=== PATIENT | female | born 1980 | race Caucasian/White ===

== ENCOUNTER 2020-10-20 10:43 | Inpatient (IN) | payer MEDICAID ==
[~2020-10-20] VITALS: Ht 167.6 cm; Wt 70.5 kg
[2020-10-20] MEDS ORDERED: SODIUM CHLORIDE FLUSH 10ML SYR IVF ONE (11:00)
[2020-10-20] MEDS ORDERED: KETOROLAC 30 MG/1 ML IVPush ONE (11:00)
[2020-10-20] MEDS ORDERED: KETOROLAC 30 MG/1 ML ONE (11:01)
[2020-10-20] MEDS ORDERED: HYDROmorphone 1 MG/ML, 1ML INJ ONE ×4 (11:01→16:18)
[2020-10-20] MEDS: HYDROmorphone 1 MG/ML, 1ML INJ IVPush PRN ×6 (11:04→16:25)
--- NOTE | 2020-10-20 11:18 | NUR ---
40yo F with hx of multiple kidney stones BIB [facility] for radiating L LBP to L groin and painful urination after attempting to relieve pain by taking a bath. In route, PIV inserted and medicated with 150mcg Fentanyl and 4mg zofran. On arrival pt leaning over side rail of [facility] in pain, medicated per OCT. MD Padilla at bedside for eval.
--- NOTE | 2020-10-20 11:23 | NUR ---
Pt states "I had to have a procedure once for kiney stone removal when I was 17. I don't know what they did but I know I was knocked out for it."
[2020-10-20] MEDS ORDERED: PLEASE ENTER ALLERGIES MC SCH (11:30)
[2020-10-20 12:00] LABS: CHLORIDE 110 mmol/L (98-107)
[2020-10-20 12:09] LABS: MICROSCOPIC INDICATED
[2020-10-20 12:13] LABS: ALANINE AMINOTRANSFERASE 17 U/L (12-78); ALKALINE PHOSPHATASE 74 U/L (45-117); ANION GAP 9 mmol/L (5-15); BILIRUBIN,TOTAL 0.6 mg/dL (0.2-1.0); CALCIUM 8.6 mg/dL (8.5-10.1); CREATININE 1.13 mg/dL (0.55-1.02)
--- NOTE | 2020-10-20 12:29 | NUR ---
Pt to imaging.
[2020-10-20 12:42] LABS: BASOPHILS % (AUTO) 0 % (0-1); EOSINOPHILS % (AUTO) 0 % (1-7); LYMPHOCYTES % (AUTO) 12 % (22-44); MEAN CORPUSCULAR HGB CONC 34.6 g/dL (32.4-35.8); MONOCYTES % (AUTO) 1 % (2-9); NEUTROPHILS % (AUTO) 87 % (42-75); PLATELET COUNT 209 x10^3/uL (130-400); RED BLOOD COUNT 4.65 x10^6/uL (3.82-5.3); RED CELL DISTRIBUTION WIDTH 13.5 % (9.6-15.2)
[2020-10-20 12:50] LABS: MD NO
[2020-10-20] MEDS ORDERED: CEFTRIAXONE PMX 1GM/50ML 50 ML IVPB ONE (13:00)
--- NOTE | 2020-10-20 13:34 | NUR ---
NPO since midnight. Last administered opiate at 1208, see MAR. Pt undressed completely for sx.
[2020-10-20] MEDS ORDERED: SODIUM CHLORIDE 0.9% 1,000 ML IV ONE (14:00)
[2020-10-20] MEDS ORDERED: SODIUM CHLORIDE FLUSH 10ML SYR IVF PRN (14:00)
[2020-10-20] MEDS ORDERED: CHLORHEXIDINE 15 ML UDC ONE (14:02)
[2020-10-20] MEDS ORDERED: FENTANYL PF 250 MCG/5ML ONE (14:04)
[2020-10-20] MEDS ORDERED: MIDAZOLAM 1 MG/ML, 2ML ONE (14:04)
--- NOTE | 2020-10-20 14:09 | NUR ---
REPORT TO CANDI COVER CREASER.
--- NOTE | 2020-10-20 14:16 | NUR ---
DR SHELTON AT BEDSIDE DISCUSSING PROCEDURE WITH PT
--- NOTE | 2020-10-20 14:20 | NUR ---
Bobby bal in [facility] - 10/20/20 at 1420 by WALTER RENAL MD AT BEDSIDE.
--- NOTE | 2020-10-20 14:28 | NUR ---
Pt removed all jewlery, including 2 bracelets and 2 necklaces and 1 ring, placed in biohazard baggie, placed in pt belonging with clothes.
[2020-10-20] MEDS ORDERED: CHLORHEXIDINE 15 ML UDC MM ONE (14:30)
[2020-10-20] MEDS ORDERED: HALOPERIDOL 5 MG/ML IV PRN (15:00)
[2020-10-20] MEDS ORDERED: LABETALOL 5MG/ML, 20ML IV PRN (15:00)
[2020-10-20] MEDS ORDERED: morphine SULFATE 10 MG/ML, 1ML IVPush PRN (15:00)
[2020-10-20] MEDS ORDERED: ACETAMINOPHEN 325 MG TABLET PO PRN (15:00)
[2020-10-20] MEDS ORDERED: PROMETHAZINE 25 MG/ML, 1ML IVPush PRN (15:00)
[2020-10-20] MEDS ORDERED: OXYcodone 5 MG/5 ML ORAL.SOL UDC PO PRN (15:00)
[2020-10-20] MEDS ORDERED: hydrALAzine 20 MG/ML, 1ML IV PRN (15:00)
[2020-10-20] MEDS ORDERED: OMNIPAQUE 350 MG/ML, 50 ML BOTTLE ONE (15:09)
[2020-10-20] MEDS ORDERED: DEXAMETHASONE 4 MG/ML, 1ML ONE (15:17)
[2020-10-20] MEDS ORDERED: GLYCOPYRROLATE 0.2MG/1ML, 5ML ONE (15:17)
[2020-10-20] MEDS ORDERED: ONDANSETRON 2MG/ML, 2ML ONE (15:17)
[2020-10-20] MEDS ORDERED: ROCURONIUM 10MG/ML,5ML ONE (15:17)
[2020-10-20] MEDS ORDERED: NEOSTIGMINE 1 MG/ML, 10ML ONE (15:17)
[2020-10-20] MEDS ORDERED: PROPOFOL 10 MG/ML, 20ML ONE (15:17)
[2020-10-20] MEDS ORDERED: CEFAZOLIN 1,000 MG ONE (15:17)
[2020-10-20] MEDS ORDERED: SUGAMMADEX 200 MG/2 ML IVPush ONE (15:29)
[2020-10-20] MEDS ORDERED: FENTANYL PF 100 MCG/2ML ONE (15:38)
[2020-10-20] MEDS ORDERED: OXYcodone 5 MG/5 ML ORAL.SOL UDC ONE (15:38)
[2020-10-20] MEDS: FENTANYL PF 100 MCG/2ML IV PRN ×2 (15:43→15:52)
[2020-10-20] MEDS ORDERED: OPIUM/BELLADONNA SUPP.RECT 16.2-30 MG ONE (16:09)
[2020-10-20] MEDS ORDERED: OPIUM/BELLADONNA SUPP.RECT 16.2-30 MG PR PRN (16:30)
[2020-10-20] MEDS ORDERED: MEPERIDINE/PF 25MG/ML,1ML ONE (16:37)
[2020-10-20] MEDS: MEPERIDINE/PF 25MG/0.5ML IVPush PRN ×2 (16:38→16:50)
[2020-10-20 16:49] LABS: HCG UR SG 1.036 (1.003-1.030)
[2020-10-20] MEDS ORDERED: OXYBUTYNIN CHLORIDE 5 MG TABLET PO PRN (18:00)
[2020-10-20] MEDS ORDERED: GABA600T7 PO (18:10)
[2020-10-20 19:22] VITALS: BP 137/83
[2020-10-20] MEDS ORDERED: GABAPENTIN 300 MG CAPSULE PO PRN (20:00)
[2020-10-20] MEDS ORDERED: MELATONIN 5 MG TABLET PO PRN (20:00)
[2020-10-20] MEDS ORDERED: ONDANSETRON 2MG/ML, 2ML IVPush PRN (20:00)
[2020-10-20] MEDS: morphine SULFATE 10 MG/ML, 1ML IVPush PRN (20:40)
[2020-10-20] MEDS: ENOXAPARIN 40 MG/0.4 ML SQ SCH (20:48)
[2020-10-20] MEDS ORDERED: OXYcodone IR 5MG TABLET PO PRN (22:30)
[2020-10-21 00:13] VITALS: BP 112/75
[2020-10-21] MEDS: ACETAMINOPHEN 325 MG TABLET PO PRN ×3 (03:48→11:15)
[2020-10-21] MEDS: OXYcodone IR 5MG TABLET PO PRN ×6 (03:49→23:27)
[2020-10-21] MEDS ORDERED: CEFTRIAXONE PMX 1GM/50ML 50 ML IV SCH ×2 (04:00→12:00)
[2020-10-21 04:16] VITALS: BP 112/75
[2020-10-21] MEDS: morphine SULFATE 10 MG/ML, 1ML IVPush PRN ×3 (04:26→21:29)
[2020-10-21 05:33] LABS: MEAN CORPUSCULAR HEMOGLOBIN 31.6 pg (27.0-34.8); MEAN PLATELET VOLUME 9.2 fL (7.4-10.4); PLATELET COUNT 248 x10^3/uL (130-400); RED CELL DISTRIBUTION WIDTH 13.2 % (9.6-15.2)
[2020-10-21 05:47] LABS: ANION GAP 8 mmol/L (5-15); CALCIUM 8.8 mg/dL (8.5-10.1); CHLORIDE 106 mmol/L (98-107)
[2020-10-21 05:57] LABS: MD YES
[2020-10-21 05:58] LABS: <PLATELET ESTIMATE> ADEQUATE; <PLT MORPHOLOGY> NORMAL PLT MORPH; <RBC MORPHOLOGY> NORMAL; BAND#(MANUAL) 0.87 x10^3/uL; BANDS%(MANUAL) 3 % (0-7); LYMPH#(MANUAL) 1.46 x10^3/uL (1-3.4); LYMPHS% (MANUAL) 5 % (22-44); MONOS#(MANUAL) 0.58 x10^3/uL (0.3-2.7); MONOS% (MANUAL) 2 % (2-9); SEG#(MANUAL) 26.19 x10^3/uL (1.8-6.8); SEGS% (MANUAL) 90 % (42-75)
[2020-10-21] MEDS: CEFEPIME 2 GM in DEXTROSE 5% 100 ML IV SCH ×3 (07:37→23:54)
[2020-10-21 07:50] VITALS: BP 100/67
[2020-10-21] MEDS: SENNA/DOCUSATE TABLET PO SCH (09:03)
[2020-10-21 13:45] VITALS: BP 95/67
[2020-10-21] MEDS: TAMSULOSIN 0.4 MG CAP.ER.24H PO SCH (15:16)
[2020-10-21 19:33] VITALS: BP 112/80
[2020-10-21] MEDS: ENOXAPARIN 40 MG/0.4 ML SQ SCH (20:00)
[2020-10-22 00:16] VITALS: BP 106/67
[2020-10-22] MEDS: morphine SULFATE 10 MG/ML, 1ML IVPush PRN ×5 (01:33→23:05)
[2020-10-22] MEDS: OXYcodone IR 5MG TABLET PO PRN ×5 (03:37→20:40)
[2020-10-22 03:57] LABS: BASOPHILS % (AUTO) 0 % (0-1); EOSINOPHILS % (AUTO) 0 % (1-7); LYMPHOCYTES % (AUTO) 19 % (22-44); MEAN CORPUSCULAR HEMOGLOBIN 32.6 pg (27.0-34.8); MEAN CORPUSCULAR HGB CONC 34.9 g/dL (32.4-35.8); MONOCYTES % (AUTO) 3 % (2-9); NEUTROPHILS % (AUTO) 77 % (42-75); PLATELET COUNT 157 x10^3/uL (130-400); RED BLOOD COUNT 3.92 x10^6/uL (3.82-5.3); RED CELL DISTRIBUTION WIDTH 13.2 % (9.6-15.2)
[2020-10-22 03:58] LABS: MD NO
[2020-10-22 04:06] LABS: ANION GAP 6 mmol/L (5-15); CHLORIDE 110 mmol/L (98-107)
[2020-10-22 06:49] VITALS: BP 109/73
[2020-10-22] MEDS: SENNA/DOCUSATE TABLET PO SCH (07:43)
[2020-10-22] MEDS: CEFEPIME 2 GM in DEXTROSE 5% 100 ML IV SCH (07:43)
[2020-10-22] MEDS: TAMSULOSIN 0.4 MG CAP.ER.24H PO SCH (07:43)
[2020-10-22 10:50] LABS: HCT (SEDRATE) 37.2 % (34.6-47.8)
[2020-10-22] MEDS: CEFTRIAXONE PMX 2GM/50ML 50 ML IVPB SCH (11:02)
[2020-10-22 13:55] VITALS: BP 114/77
[2020-10-22] MEDS: ENOXAPARIN 40 MG/0.4 ML SQ SCH (19:58)
[2020-10-22 20:34] VITALS: BP 107/66
[2020-10-23] MEDS: OXYcodone IR 5MG TABLET PO PRN ×6 (00:32→21:31)
[2020-10-23] MEDS: morphine SULFATE 10 MG/ML, 1ML IVPush PRN ×6 (02:23→21:35)
[2020-10-23 02:32] VITALS: BP 112/75
[2020-10-23 05:33] LABS: BASOPHILS % (AUTO) 0 % (0-1); EOSINOPHILS % (AUTO) 1 % (1-7); LYMPHOCYTES % (AUTO) 24 % (22-44); MEAN CORPUSCULAR HEMOGLOBIN 32.2 pg (27.0-34.8); MEAN CORPUSCULAR HGB CONC 34.7 g/dL (32.4-35.8); MEAN PLATELET VOLUME 9.6 fL (7.4-10.4); MONOCYTES % (AUTO) 7 % (2-9); NEUTROPHILS % (AUTO) 69 % (42-75); PLATELET COUNT 161 x10^3/uL (130-400)
[2020-10-23 05:36] LABS: MD NO
[2020-10-23 05:48] LABS: ANION GAP 5 mmol/L (5-15); CALCIUM 8.8 mg/dL (8.5-10.1); CHLORIDE 103 mmol/L (98-107)
[2020-10-23 07:26] VITALS: BP 104/70
[2020-10-23] MEDS: TAMSULOSIN 0.4 MG CAP.ER.24H PO SCH (08:25)
[2020-10-23] MEDS: SENNA/DOCUSATE TABLET PO SCH (08:25)
[2020-10-23] MEDS: CEFTRIAXONE PMX 2GM/50ML 50 ML IVPB SCH (10:59)
[2020-10-23 13:28] VITALS: BP 111/69
[2020-10-23] MEDS: ENOXAPARIN 40 MG/0.4 ML SQ SCH (19:45)
[2020-10-23 20:47] VITALS: BP 111/76
[2020-10-24] MEDS: morphine SULFATE 10 MG/ML, 1ML IVPush PRN ×3 (01:05→08:44)
[2020-10-24 01:22] VITALS: BP 114/78
[2020-10-24] MEDS: OXYcodone IR 5MG TABLET PO PRN ×3 (01:28→12:35)
[2020-10-24 06:04] LABS: BASOPHILS % (AUTO) 0 % (0-1); EOSINOPHILS % (AUTO) 2 % (1-7); LYMPHOCYTES % (AUTO) 37 % (22-44); MEAN CORPUSCULAR HEMOGLOBIN 32.3 pg (27.0-34.8); MEAN CORPUSCULAR HGB CONC 35.3 g/dL (32.4-35.8); MEAN PLATELET VOLUME 9.1 fL (7.4-10.4); MONOCYTES % (AUTO) 7 % (2-9); NEUTROPHILS % (AUTO) 54 % (42-75); PLATELET COUNT 183 x10^3/uL (130-400); RED BLOOD COUNT 4.24 x10^6/uL (3.82-5.3)
[2020-10-24 06:07] LABS: MD NO
[2020-10-24 06:14] LABS: ALANINE AMINOTRANSFERASE 23 U/L (12-78); ALBUMIN 3.1 g/dL (3.4-5.0); ANION GAP 4 mmol/L (5-15); CALCIUM 8.9 mg/dL (8.5-10.1); CHLORIDE 105 mmol/L (98-107); CREATININE 0.61 mg/dL (0.55-1.02)
[2020-10-24 06:17] LABS: ALKALINE PHOSPHATASE 62 U/L (45-117); BILIRUBIN,TOTAL 0.4 mg/dL (0.2-1.0); TOTAL PROTEIN 6.8 g/dL (6.4-8.2)
[2020-10-24 07:15] VITALS: BP 111/77
[2020-10-24] MEDS: SENNA/DOCUSATE TABLET PO SCH (08:37)
[2020-10-24] MEDS: TAMSULOSIN 0.4 MG CAP.ER.24H PO SCH (08:37)
[2020-10-24] MEDS: CEFTRIAXONE PMX 2GM/50ML 50 ML IVPB SCH (11:08)
[2020-10-24] MEDS ORDERED: TAMS-11 PO (11:25)
[2020-10-24 12:28] VITALS: BP 118/80
[2020-10-24] MEDS ORDERED: OXYC1TAB14 PO (12:55)
[2020-10-24 14:41] VITALS: BP 124/68
== END 2020-10-24 15:37 | disposition home or self-care (01) | DRG 854 ==
LOC: SUATTDRO 13:26 → ED 13:33 → EDIP 13:59 → INTOOBSV 13:59 → 4NE 17:21 → OBSVTOIN 10-21 11:19 → DCLOUNGE 10-24 15:27
PROVIDERS: ADMIT Internal Medicine; ATTEND Hospitalist
PROC: BT1F1ZZ Fluoroscopy of Left Kidney, Ureter and Bladder using Low Osmolar Contrast (ICD-10-PCS; 2020-10-20)
PROC: 0T778DZ Dilation of Left Ureter with Intraluminal Device, Via Natural or Artificial Opening Endoscopic (ICD-10-PCS; principal; 2020-10-20 14:30)
PROC: 02HV33Z Insertion of Infusion Device into Superior Vena Cava, Percutaneous Approach (ICD-10-PCS; 2020-10-24)
PROC: B5181ZA Fluoroscopy of Superior Vena Cava using Low Osmolar Contrast, Guidance (ICD-10-PCS; 2020-10-24)
PROC: B548ZZA Ultrasonography of Superior Vena Cava, Guidance (ICD-10-PCS; 2020-10-24)
DX: A41.51 Sepsis due to Escherichia coli [E. coli] (principal); N13.6 Pyonephrosis; N17.9 Acute kidney failure, unspecified; M54.5 Low back pain; Z20.822 Contact with and (suspected) exposure to COVID-19; Z86.718 Personal history of other venous thrombosis and embolism; Z80.3 Family history of malignant neoplasm of breast; Z87.442 Personal history of urinary calculi
CPT/HCPCS: 36415; 36573; 74176; 74420; 80048; 80053; 81001; 81025; 83605; 83735; 84702; 85025; 85651; 86140; 87040; 87077; 87086; 87186; 87635; 96365; 96375; 96376; 99291; G0378; J0690; J0696; J1100; J1170; J1650; J1885; J2175; J2250; J2405; J2704; J2710; J3010; Q9967; C1751; C1769; C2617; J2270

== ENCOUNTER 2020-10-28 14:58 | Emergency (ER) | payer MEDICAID ==
[~2020-10-28] VITALS: Ht 157.5 cm; Wt 67.0 kg
[~2020-10-28 14:58] MED LIST: GABA600T7 PO; OXYC1TAB14 PO; TAMS-11 PO
[2020-10-28] MEDS ORDERED: ONDANSETRON 2MG/ML, 2ML IVPush ONE (15:30)
[2020-10-28] MEDS ORDERED: MORPHINE SULFATE 4 MG/ML, 1ML IVPush PRN (15:30)
[2020-10-28] MEDS ORDERED: MORPHINE SULFATE 4 MG/ML, 1ML ONE (15:41)
[2020-10-28] MEDS ORDERED: ONDANSETRON 2MG/ML, 2ML ONE (15:41)
[2020-10-28] MEDS ORDERED: HYDROmorphone 1 MG/ML, 1ML INJ ONE (15:48)
[2020-10-28 15:59] LABS: MICROSCOPIC INDICATED
[2020-10-28] MEDS ORDERED: HYDROmorphone 1 MG/ML, 1ML INJ IV ONE (16:00)
[2020-10-28 16:01] LABS: ALBUMIN 3.7 g/dL (3.4-5.0); ANION GAP 5 mmol/L (5-15); CALCIUM 8.6 mg/dL (8.5-10.1); CHLORIDE 108 mmol/L (98-107); CREATININE 0.78 mg/dL (0.55-1.02)
[2020-10-28 16:10] LABS: BASOPHILS % (AUTO) 1 % (0-1); EOSINOPHILS % (AUTO) 3 % (1-7); LYMPHOCYTES % (AUTO) 32 % (22-44); MEAN CORPUSCULAR HGB CONC 34.7 g/dL (32.4-35.8); MEAN PLATELET VOLUME 8.3 fL (7.4-10.4); MONOCYTES % (AUTO) 6 % (2-9); NEUTROPHILS % (AUTO) 59 % (42-75); PLATELET COUNT 304 x10^3/uL (130-400); RED BLOOD COUNT 4.28 x10^6/uL (3.82-5.3); RED CELL DISTRIBUTION WIDTH 12.9 % (9.6-15.2)
[2020-10-28 16:15] LABS: MD NO
[2020-10-28] MEDS ORDERED: CEFTRIAXONE PMX 1GM/50ML 50 ML IV ONE (16:30)
[2020-10-28] MEDS ORDERED: CEFTRIAXONE PMX 1GM/50ML 50 ML ONE (16:43)
--- NOTE | 2020-10-28 16:45 | NUR ---
Need for blood cultures prior to abx clarified with erp. erp deferring need for cultures as scheduled abx and no sirs vitals not lab indicating sepsis. Abx started withOUT blood cultures prior
--- NOTE | 2020-10-28 16:53 | NUR ---
PER ER PA, STRAIGHT CATH URINE NOT NECESSARY AT THIS TIME.
[2020-10-28 17:04] VITALS: BP 113/75
--- NOTE | 2020-10-28 17:04 | NUR ---
ABX GIVEN BY ASSIST PT DOING FINE. AT BS. Addendum: 10/28/20 at 1705 by WYATT PT REPORTS DILAUDID WAS EFFECTIVE FOR FLANK PAIN.
[2020-10-28] MEDS ORDERED: KETOROLAC 30 MG/1 ML IVPush ONE (17:30)
[2020-10-28] MEDS ORDERED: KETOROLAC 30 MG/1 ML ONE (17:33)
== END 2020-10-28 18:12 | disposition home or self-care (01) ==
LOC: ED 18:06
DX: R31.9 Hematuria, unspecified (principal); M54.5 Low back pain; R10.9 Unspecified abdominal pain; Z86.718 Personal history of other venous thrombosis and embolism; Z79.899 Other long term (current) drug therapy; Z87.442 Personal history of urinary calculi
CPT/HCPCS: 36415; 74018; 80048; 81001; 82040; 83605; 85025; 87077; 87086; 87186; 96365; 96375; 99284; J0696; J1170; J1885; J2405

== ENCOUNTER 2020-10-29 16:51 | Emergency (ER) | payer MEDICAID ==
[~2020-10-29] VITALS: Ht 157.5 cm; Wt 66.2 kg
--- NOTE | 2020-10-29 17:27 | NUR ---
PT PLACED INTO GOWN, 02/BP MONITORS PLACED. PT SITTING ON GURNEY, NAD/VSS. CALL LIGHT WITHIN REACH. NO NEEDS AT THIS TIME.
[2020-10-29] MEDS ORDERED: ONDANSETRON 2MG/ML, 2ML IVPush ONE (17:30)
[2020-10-29] MEDS ORDERED: KETOROLAC 30 MG/1 ML IVPush ONE (17:30)
[2020-10-29] MEDS ORDERED: ONDANSETRON 2MG/ML, 2ML ONE (17:31)
[2020-10-29] MEDS ORDERED: KETOROLAC 30 MG/1 ML ONE (17:31)
[2020-10-29] MEDS ORDERED: HYDROmorphone 1 MG/ML, 1ML INJ ONE ×2 (17:31→19:30)
[2020-10-29] MEDS: HYDROmorphone 1 MG/ML, 1ML INJ IVPush PRN ×2 (17:41→19:32)
[2020-10-29 18:04] LABS: MICROSCOPIC INDICATED
[2020-10-29 18:18] LABS: BASOPHILS % (AUTO) 1 % (0-1); EOSINOPHILS % (AUTO) 2 % (1-7); LYMPHOCYTES % (AUTO) 31 % (22-44); MEAN CORPUSCULAR HEMOGLOBIN 32.1 pg (27.0-34.8); MEAN CORPUSCULAR HGB CONC 35.3 g/dL (32.4-35.8); MEAN PLATELET VOLUME 7.9 fL (7.4-10.4); MONOCYTES % (AUTO) 6 % (2-9); NEUTROPHILS % (AUTO) 60 % (42-75); PLATELET COUNT 360 x10^3/uL (130-400); RED CELL DISTRIBUTION WIDTH 13.3 % (9.6-15.2)
[2020-10-29 18:23] LABS: MD NO
--- NOTE | 2020-10-29 18:30 | NUR ---
PT TO XRAY
[2020-10-29 18:31] LABS: ALBUMIN 3.7 g/dL (3.4-5.0); ANION GAP 5 mmol/L (5-15); CALCIUM 8.5 mg/dL (8.5-10.1); CHLORIDE 107 mmol/L (98-107)
[2020-10-29 18:38] LABS: CREATININE 0.83 mg/dL (0.55-1.02)
--- NOTE | 2020-10-29 18:38 | NUR ---
PT BACK FROM XRAY. CALMLY LAYING ON GURNEY. PLACED BACK ON O2/BP MONITORS. NAD/VSS. COMFORT MEASURES PROVIDED. NO NEEDS AT THIS TIME.
--- NOTE | 2020-10-29 18:50 | NUR ---
REPORT GIVEN TO EPI PETTIT
[2020-10-29] MEDS ORDERED: HYDROmorphone 1 MG/ML, 1ML INJ IV ONE (20:00)
[2020-10-29] MEDS ORDERED: OXYcodone/APAP 5/325MG TABLET PO ONE (20:00)
[2020-10-29] MEDS ORDERED: OXYcodone/APAP 5/325MG TABLET ONE (20:16)
[2020-10-29 20:23] VITALS: BP 135/90
--- NOTE | 2020-10-29 20:27 | NUR ---
Pt medicated per order with relief stated. Pt PICC flushed and patent. Patient given discharge instructions and they have confirmed that they understand the instructions. Patient ambulatory with steady gait. Pt instructed not to drive and has ride here to pick her up Pt instructed to f/u with Urology tomorrow.
== END 2020-10-29 20:29 | disposition home or self-care (01) ==
LOC: ED 18:19
DX: R10.9 Unspecified abdominal pain (principal); R30.0 Dysuria; R31.9 Hematuria, unspecified
CPT/HCPCS: 36415; 74018; 76770; 80048; 81001; 82040; 84703; 85025; 87086; 96374; 96375; 96376; 99285; J1170; J1885; J2405

== ENCOUNTER 2020-11-05 14:02 | Day surgery (SDC) | payer MEDICAID ==
[~2020-11-05] VITALS: Ht 157.5 cm; Wt 66.3 kg
[2020-11-05] MEDS ORDERED: CHLORHEXIDINE 15 ML UDC PO ONE (14:30)
[2020-11-05] MEDS ORDERED: LACTATED RINGERS 1,000 ML IV SCH (14:30)
[2020-11-05] MEDS ORDERED: TAMS-11 PO (14:48)
[2020-11-05] MEDS ORDERED: OXYCODON PO (14:48)
[2020-11-05] MEDS ORDERED: PHEN100T90 PO (14:48)
[2020-11-05 14:49] VITALS: BP 132/88
[2020-11-05] MEDS ORDERED: PLEASE ENTER HEIGHT AND WEIGHT MC SCH (15:00)
== END 2020-11-05 16:00 | disposition home or self-care (01) ==
LOC: OR 14:02
PROVIDERS: ATTEND Urology
DX: N20.2 Calculus of kidney with calculus of ureter (principal); Z53.8 Procedure and treatment not carried out for other reasons; Z20.828 Contact with and (suspected) exposure to other viral communicable diseases; N39.0 Urinary tract infection, site not specified; Z79.891 Long term (current) use of opiate analgesic; Z79.899 Other long term (current) drug therapy
CPT/HCPCS: 81025; 87635

== ENCOUNTER 2020-11-16 14:31 | Emergency (ER) | payer MEDICAID ==
[~2020-11-16] VITALS: Ht 157.5 cm; Wt 67.0 kg
[~2020-11-16 14:31] MED LIST changes: +OXYCODON PO; +PHEN100T90 PO
--- NOTE | 2020-11-16 14:42 | NUR ---
PT BROUGHT BACK FOR POSSIBLE KIDNEY INFECTION
[2020-11-16] MEDS ORDERED: KETOROLAC 30 MG/1 ML IVPush ONE (15:00)
[2020-11-16] MEDS ORDERED: HYDROmorphone 1 MG/ML, 1ML INJ IV ONE (15:00)
[2020-11-16] MEDS ORDERED: SODIUM CHLORIDE FLUSH 10ML SYR IVF ONE (15:00)
[2020-11-16] MEDS ORDERED: SODIUM CHLORIDE 0.9% 1,000 ML IV ONE (15:00)
[2020-11-16] MEDS ORDERED: KETOROLAC 30 MG/1 ML ONE (15:03)
[2020-11-16] MEDS ORDERED: HYDROmorphone 1 MG/ML, 1ML INJ ONE ×2 (15:03→17:34)
[2020-11-16 15:26] LABS: BASOPHILS % (AUTO) 0 % (0-1); EOSINOPHILS % (AUTO) 5 % (1-7); LYMPHOCYTES % (AUTO) 36 % (22-44); MEAN CORPUSCULAR HEMOGLOBIN 32.4 pg (27.0-34.8); MEAN CORPUSCULAR HGB CONC 34.8 g/dL (32.4-35.8); MEAN PLATELET VOLUME 8.7 fL (7.4-10.4); MONOCYTES % (AUTO) 5 % (2-9); NEUTROPHILS % (AUTO) 53 % (42-75); PLATELET COUNT 235 x10^3/uL (130-400); RED BLOOD COUNT 4.26 x10^6/uL (3.82-5.3); RED CELL DISTRIBUTION WIDTH 13.8 % (9.6-15.2)
--- NOTE | 2020-11-16 15:26 | NUR ---
PT MEDICATED PER MAR. DARCY GOFF WALKED TO LAB
[2020-11-16 15:31] LABS: MD NO
[2020-11-16 15:34] LABS: ALANINE AMINOTRANSFERASE 16 U/L (12-78); ALBUMIN 3.8 g/dL (3.4-5.0); ANION GAP 4 mmol/L (5-15); CALCIUM 8.6 mg/dL (8.5-10.1); CHLORIDE 113 mmol/L (98-107); CREATININE 0.98 mg/dL (0.55-1.02)
--- NOTE | 2020-11-16 15:35 | NUR ---
PT TO IMAGING
[2020-11-16 15:38] LABS: ALKALINE PHOSPHATASE 67 U/L (45-117); BILIRUBIN,TOTAL 0.4 mg/dL (0.2-1.0); TOTAL PROTEIN 6.8 g/dL (6.4-8.2)
--- NOTE | 2020-11-16 15:58 | NUR ---
PT BACK IN ROOM. CALL LIGHT IN REACH
[2020-11-16 16:14] LABS: MICROSCOPIC INDICATED
--- NOTE | 2020-11-16 16:49 | NUR ---
Ermd at bedside to discuss poc.
[2020-11-16 17:10] VITALS: BP 128/71
--- NOTE | 2020-11-16 17:15 | NUR ---
ERMD at bedside for ultra sound, discussed poc
[2020-11-16] MEDS ORDERED: HYDROmorphone 2 MG/ML, 1ML IVPush PRN (18:00)
== END 2020-11-16 17:45 | disposition home or self-care (01) ==
LOC: ED 16:30
DX: N20.1 Calculus of ureter (principal); Z20.822 Contact with and (suspected) exposure to COVID-19
CPT/HCPCS: 36415; 74176; 80053; 81001; 84703; 85025; 87086; 87635; 96361; 96374; 96375; 96376; 99284; J1170; J1885; J7030

== ENCOUNTER 2020-11-20 11:43 | Day surgery (SDC) | payer SELFPAY ==
[~2020-11-20] VITALS: Ht 157.5 cm; Wt 66.8 kg
[~2020-11-20 11:43] MED LIST changes: +OXYC1TAB12 PO; -OXYC1TAB14 PO
[2020-11-20] MEDS ORDERED: CHLORHEXIDINE 15 ML UDC PO ONE (12:30)
[2020-11-20] MEDS ORDERED: LACTATED RINGERS 1,000 ML IV SCH (12:30)
[2020-11-20 12:43] LABS: HCG UR SG 1.024 (1.003-1.030)
[2020-11-20 12:49] VITALS: BP 138/102
[2020-11-20] MEDS ORDERED: NITR100C56 PO (12:58)
[2020-11-20] MEDS ORDERED: MIDAZOLAM 1 MG/ML, 2ML ONE (13:23)
[2020-11-20] MEDS ORDERED: FENTANYL PF 250 MCG/5ML ONE (13:23)
[2020-11-20] MEDS ORDERED: OMNIPAQUE 350 MG/ML, 50 ML BOTTLE ONE (13:46)
[2020-11-20] MEDS ORDERED: NEOMY/POLYMYXIN B GU IRR. 1 ML ONE (13:46)
[2020-11-20] MEDS ORDERED: ONDANSETRON 2MG/ML, 2ML ONE (14:02)
[2020-11-20] MEDS ORDERED: DEXAMETHASONE 4 MG/ML, 1ML ONE ×2 (14:16→14:23)
[2020-11-20] MEDS ORDERED: CEFAZOLIN 1,000 MG ONE ×2 (14:23)
[2020-11-20] MEDS ORDERED: ROCURONIUM 10MG/ML,5ML ONE (14:25)
[2020-11-20] MEDS ORDERED: PROPOFOL 10 MG/ML, 20ML ONE (14:25)
[2020-11-20] MEDS ORDERED: SUCCINYLCHOLINE 20 MG/ML, 10ML ONE (14:25)
[2020-11-20] MEDS ORDERED: ALBUTEROL SULFATE 2.5 MG/3 ML NPPB PRN (14:30)
[2020-11-20] MEDS ORDERED: PROMETHAZINE 12.5 MG SUPP PR PRN (14:30)
[2020-11-20] MEDS ORDERED: hydrALAzine 20 MG/ML, 1ML IV PRN (14:30)
[2020-11-20] MEDS ORDERED: ONDANSETRON 2MG/ML, 2ML IVPush PRN (14:30)
[2020-11-20] MEDS ORDERED: DIAZEPAM 5 MG/ML, 2ML IVPush PRN (14:30)
[2020-11-20] MEDS ORDERED: PROMETHAZINE 25 MG/ML, 1ML IVPush PRN (14:30)
[2020-11-20] MEDS ORDERED: ACETAMINOPHEN 325 MG TABLET PO PRN (14:30)
[2020-11-20] MEDS ORDERED: MEPERIDINE/PF 25MG/0.5ML IVPush PRN (14:30)
[2020-11-20] MEDS ORDERED: HYDROmorphone 1 MG/ML, 1ML INJ IVPush PRN (14:30)
[2020-11-20] MEDS ORDERED: MIDAZOLAM 1 MG/ML, 2ML IV PRN (14:30)
[2020-11-20] MEDS ORDERED: DIPHENHYDRAMINE 50 MG/ML, 1ML IVPush PRN ×2 (14:30)
[2020-11-20] MEDS ORDERED: EPHEDRINE 50 MG/ML, 1ML IVPush PRN (14:30)
[2020-11-20] MEDS ORDERED: LABETALOL 5MG/ML, 20ML IV PRN (14:30)
[2020-11-20] MEDS ORDERED: OMNIPAQUE 350 MG/ML, 50 ML BOTTLE IV ONE (14:46)
[2020-11-20] MEDS: FENTANYL PF 100 MCG/2ML IV PRN ×3 (15:00→15:15)
[2020-11-20] MEDS: OXYcodone 5 MG/5 ML ORAL.SOL UDC PO PRN ×2 (15:05→16:35)
[2020-11-20] MEDS ORDERED: FENTANYL PF 100 MCG/2ML ONE (15:05)
[2020-11-20] MEDS ORDERED: OXYcodone 5 MG/5 ML ORAL.SOL UDC ONE ×2 (15:06→16:34)
== END 2020-11-20 17:10 | disposition home or self-care (01) ==
LOC: OUT 11:43
PROVIDERS: ATTEND Urology
DX: N13.2 Hydronephrosis with renal and ureteral calculous obstruction (principal); N39.0 Urinary tract infection, site not specified; Z79.891 Long term (current) use of opiate analgesic; Z79.899 Other long term (current) drug therapy
CPT/HCPCS: 52353; 74420; 81025; 82360; 88300; C1769; J0330; J0690; J1100; J2250; J2405; J2704; J3010; J7120; Q9967

== ENCOUNTER 2020-11-28 12:56 | Emergency (ER) | payer MEDICAID ==
[~2020-11-28] VITALS: Ht 157.5 cm; Wt 65.0 kg
[~2020-11-28 12:56] MED LIST changes: +NITR100C56 PO; -OXYC1TAB12 PO; +OXYC1TAB14 PO
--- NOTE | 2020-11-28 13:40 | NUR ---
PT PLACED ON ALL ROOM MONITORING. HR IMPROVED FROM TRIAGE, RANGE FROM 106-118 IN ROOM. PT REPORTS PALPITATIONS OVER A COUPLE DAYS. NO HX OF HEART PROBLEMS. URINE COLLECTED/ORDERED/SENT TO LAB. ERP IN TO SEE PT. CALL LIGHT WITHIN REACH.
[2020-11-28 13:59] LABS: MICROSCOPIC INDICATED
[2020-11-28] MEDS ORDERED: ONDANSETRON 2MG/ML, 2ML IVPush ONE (14:00)
[2020-11-28] MEDS ORDERED: SODIUM CHLORIDE FLUSH 10ML SYR IVF ONE (14:00)
[2020-11-28] MEDS ORDERED: ONDANSETRON 2MG/ML, 2ML ONE (14:11)
[2020-11-28] MEDS ORDERED: MORPHINE SULFATE 4 MG/ML, 1ML ONE ×2 (14:11→15:57)
[2020-11-28] MEDS: MORPHINE SULFATE 4 MG/ML, 1ML IVPush PRN ×2 (14:16→16:02)
--- NOTE | 2020-11-28 14:20 | NUR ---
IV PLACED, LABS DRAWN WITH START. MEDS GIVEN PER ERP ORDER FOR 7/10 L FLANK PAIN. PT TO XRAY.
[2020-11-28 14:29] LABS: BASOPHILS % (AUTO) 1 % (0-1); EOSINOPHILS % (AUTO) 1 % (1-7); LYMPHOCYTES % (AUTO) 29 % (22-44); MD NO; MEAN CORPUSCULAR HEMOGLOBIN 32.5 pg (27.0-34.8); MEAN CORPUSCULAR HGB CONC 34.6 g/dL (32.4-35.8); MEAN PLATELET VOLUME 8.6 fL (7.4-10.4); MONOCYTES % (AUTO) 6 % (2-9); NEUTROPHILS % (AUTO) 63 % (42-75); PLATELET COUNT 235 x10^3/uL (130-400); RED BLOOD COUNT 4.27 x10^6/uL (3.82-5.3); RED CELL DISTRIBUTION WIDTH 13.2 % (9.6-15.2)
[2020-11-28 14:35] LABS: ALBUMIN 3.8 g/dL (3.4-5.0); ANION GAP 6 mmol/L (5-15); CALCIUM 8.8 mg/dL (8.5-10.1); CHLORIDE 111 mmol/L (98-107)
--- NOTE | 2020-11-28 15:23 | NUR ---
ALL RESULTS BACK, PT FOR RECHECK.
--- NOTE | 2020-11-28 16:21 | NUR ---
PT REMEDICATED FOR RETURNING PAIN TO L FLANK. ERP AWAITING UROLOGY.
--- NOTE | 2020-11-28 16:45 | NUR ---
NS BOLUS INFUSING. CONTINUE TO AWAIT UROLOGY CONSULT. PT REQUEST FOR UROLOGY REFERRAL D/T DISSATIFACTION AT CURRENT OFFICE.
[2020-11-28] MEDS ORDERED: SODIUM CHLORIDE 0.9% 1,000ML IVBOLUS ONE (17:00)
[2020-11-28 18:12] VITALS: BP 125/61
== END 2020-11-28 18:14 | disposition home or self-care (01) ==
LOC: ED 15:23
DX: N20.2 Calculus of kidney with calculus of ureter (principal); R31.9 Hematuria, unspecified; Z86.718 Personal history of other venous thrombosis and embolism
CPT/HCPCS: 36415; 74018; 76770; 80048; 81001; 82040; 84703; 85025; 87086; 96374; 96375; 96376; 99285; J2270; J2405; J7030